=== PATIENT | male | born 1940 | race Caucasian/White ===

== ENCOUNTER 2017-06-23 08:21 | Outpatient (CLI) | payer MEDICARE, OTHER | END 2017-06-23 08:22 | disposition home or self-care (01) | LOC: BICMRI 08:21 | PROVIDERS: ATTEND Orthopaedic Surgery | DX: M48.061 Spinal stenosis, lumbar region without neurogenic claudication (principal); M99.83 Other biomechanical lesions of lumbar region; M47.27 Other spondylosis with radiculopathy, lumbosacral region | CPT/HCPCS: 72148 ==

== ENCOUNTER 2017-07-24 10:15 | Inpatient (IN) | payer MEDICARE, OTHER ==
[2017-07-31] MEDS ORDERED: CEFAZOLIN/Water 2 GM/20 ML SYRINGE ONE (10:59)
[2017-07-31] MEDS ORDERED: Bacitracin Zinc Ointment 30 gm TUBE ONE (12:25)
[2017-07-31] MEDS ORDERED: Sodium Chloride 0.9% 10 ML ONE (12:25)
[2017-07-31] MEDS ORDERED: Thrombin 5000 UNITS/5 ML VIAL ONE (12:25)
[2017-07-31] MEDS ORDERED: Fentanyl 100 MCG/2 ML VIAL ONE ×2 (12:53→16:22)
[2017-07-31] MEDS ORDERED: Rocuronium Bromide 50 MG/5 ML VIAL ONE (13:49)
[2017-07-31] MEDS ORDERED: Lidocaine 1% PF 5 ML VIAL ONE (13:51)
[2017-07-31] MEDS ORDERED: PROPOFOL 200 MG/20 ML VIAL ONE (13:51)
[2017-07-31] MEDS ORDERED: Ondansetron HCl/PF 4 MG/2 ML Vial ONE (13:51)
[2017-07-31] MEDS ORDERED: PHENYLEPHRINE-NS 100 MCG/ML 10 ML SYRINGE ONE ×2 (13:51→14:26)
[2017-07-31] MEDS ORDERED: ePHEDrine/0.9% NaCl/PF SYRINGE 50 mg/10 ml ONE ×2 (13:51→14:40)
[2017-07-31] MEDS ORDERED: Fleet Enema 133 ML BOT PR PRN (15:55)
[2017-07-31] MEDS ORDERED: traMADol HCl 50 MG TAB PO PRN (15:55)
[2017-07-31] MEDS ORDERED: Acetaminophen/Codeine 30-300mg Tablet PO PRN (15:55)
[2017-07-31] MEDS ORDERED: tiZANidine HCl 4 MG TAB PO PRN (15:55)
[2017-07-31] MEDS ORDERED: Milk Of Magnesia 30 ML UDCUP PO PRN (15:55)
[2017-07-31] MEDS ORDERED: Promethazine HCl 25 MG/ML VIAL IM PRN (15:55)
[2017-07-31] MEDS ORDERED: Mag-Al 1200 mg/1200 mg/30 ML UDCUP PO PRN (15:55)
[2017-07-31] MEDS ORDERED: Acetaminophen 325 MG TAB PO PRN (15:55)
[2017-07-31] MEDS ORDERED: Bisacodyl 10 MG SUPP PR PRN (15:55)
[2017-07-31] MEDS ORDERED: CEFAZOLIN/Water 2 GM/20 ML SYRINGE SLOW IVP SCH (19:00)
[2017-07-31] MEDS: Sodium Chloride 0.9% 1,000 ML IV SCH (21:49)
[2017-07-31] MEDS: Atorvastatin Calcium 20 MG TAB PO SCH (21:51)
[2017-07-31] MEDS: CEFAZOLIN/Water 2 GM/20 ML SYRINGE SLOW IVP SCH (21:51)
[2017-07-31 22:18] VITALS: BMI 30.1
[2017-07-31] MEDS: HYDROcodone/Acetaminophen 7.5/325 mg Tablet PO PRN (22:43)
[2017-08-01] MEDS: HYDROcodone/Acetaminophen 7.5/325 mg Tablet PO PRN ×4 (02:14→20:29)
[2017-08-01] MEDS: Sodium Chloride 0.9% 1,000 ML IV SCH ×2 (06:17→18:47)
[2017-08-01] MEDS: CEFAZOLIN/Water 2 GM/20 ML SYRINGE SLOW IVP SCH (06:17)
[2017-08-01] MEDS ORDERED: Tamsulosin HCl 0.4 MG CAP PO SCH (06:45)
[2017-08-01] MEDS: Lisinopril 10 MG TAB PO SCH (08:39)
[2017-08-01] MEDS: Cyanocobalamin (Vitamin B-12) 1,000 MCG TAB PO SCH (08:40)
[2017-08-01] MEDS ORDERED: Indapamide 1.25 MG TAB PO SCH (10:30)
[2017-08-01] MEDS: Atorvastatin Calcium 20 MG TAB PO SCH (20:29)
[2017-08-02] MEDS: HYDROcodone/Acetaminophen 7.5/325 mg Tablet PO PRN ×2 (03:45→08:32)
[2017-08-02] MEDS: Lisinopril 10 MG TAB PO SCH (08:28)
[2017-08-02] MEDS: Cyanocobalamin (Vitamin B-12) 1,000 MCG TAB PO SCH (08:28)
[2017-08-02] MEDS: Sodium Chloride 0.9% 1,000 ML IV SCH (08:30)
[2017-08-02] MEDS ORDERED: Tamsulosin HCl 0.4 MG CAP PO SCH (09:00)
[2017-08-02] MEDS ORDERED: Indapamide 1.25 MG TAB PO SCH (09:00)
--- NOTE | 2017-08-02 09:07 | PRG ---
DATE OF SERVICE: 08/02/2017 The patient is postop day #2 for L4-L5 synovial cyst resection. Yesterday, the patient developed artemio e urinary retention, requiring p.r.n. straight catheterization x2. With a bladder scan of greater th an 300 each time. Initially, patient reports he thought he was improving, but urinary retention retu rned yesterday evening, requiring placement of indwelling Chinchilla catheter. The patient is also gettin g 0.4 mg of Flomax every day. He is, otherwise, doing well. He reports he is walking to the apartme nt, 5/5 strength throughout. No focal motor weakness. His pain is well controlled with p.o. medicat ions and he is tolerating his diet. We will plan to consult Urology for evaluation of this development of urinary retention during his po stoperative course.
[2017-08-02 11:58] VITALS: BP 130/78; TEMP 98.8
--- NOTE | 2017-08-02 12:10 | CON ---
DATE OF CONSULTATION: 08/02/2017 HISTORY OF PRESENT ILLNESS: This is a 77-year-old white male, who 2 days ago underwent a L4-L5 synov ial cyst resection. This was done because of numbness in his right foot. It started about 2 years a go with sciatica-type pain and he still has that to some extent when he is up standing or walking for 30-40 minutes. He had the surgery done. He states that he initially voided okay when he came to [facility] floor, but since then has not been able to void more than just a very small amount. He was cathete rized twice and then yesterday evening a catheter was placed and left in. He has had a catheter once in the 1970s after cholecystectomy, and he does not recall that it was placed, because of difficulty with urination, but he thinks he just woke up from the procedure and had it in. He does have some l ower tract symptoms, which he has had for years. He is a patient of one of the Dr. Madrid's, but he h as not seen them for quite a while. He does get up 2-3 times at night. He has got no abnormal dayti me frequency. He does have some urgency, but no incontinence and no hesitancy. His force of stream has been diminished, but he does feel like he empties okay. He has not had any history of blood in t he urine. He has had no recent infections in the urinary tract, but he has had prostatitis probably a couple of times in the past. He has had no history of kidney stones. He has no family history of prostate cancer. He has no personal history suggestive of prostate cancer. Dr. Celaya, his family d domingo, does PSAs and he believes rectal exams yearly and they have been normal. His routine medicine s are medicine for cholesterol and hypertension. He does not take any medicines for lower urinary tr act symptoms. He also has taken aspirin. In the hospital, he is currently on Tylenol #3, hydrocodon e, p.r.n. morphine, Zanaflex, and Ultram. He has been started on Flomax, but he just probably had 1 dose of that, maybe 2. His routine medicines were Zestril, Lipitor, and aspirin as mentioned. He ames s not had a bowel movement since surgery, but has been passing gas. Since his surgery, he still has some numbness in the right foot, but he does not have any in the left. He has been walking and he do es not feel like he has any weakness in his lower extremities. He has no perineal paresthesias. PAST SURGICAL HISTORY: Includes a couple hernia repairs, a gallbladder procedure, and a back procedu re most recently. He has not had any orthopedic joint replacement or any cardiac valve replacement. ALLERGIES: He has no known drug allergies. SOCIAL HISTORY: He quit smoking a number of years ago. He does not drink much at all. FAMILY HISTORY: Positive for colon cancer, but not prostate cancer. PHYSICAL EXAMINATION: He does not have flank tenderness. The abdomen is soft and nontender. Bladde r is not distended. He is not circumcised, as the catheter indwelling appears to be in good position , draining clear urine. There is no phimosis. There are no penile lesions. The testicles are desce nded without mass or tenderness. There is no apparent needle paresthesias noted. There is normal se nsation to light touch. Rectal exam reveals normal rectal tone. He does have a voluntary anal contr action and a bulbocavernosus reflex that is present. His prostate is enlarged, but without nodularit y. There are no rectal lesions. IMPRESSION: This is a 77-year-old male with underlying lower urinary tract symptoms that have not re quired any therapy before surgery. He is now having difficulty urinating after and is probably relat ed to the pain medicines that he has been receiving as well as the bedrest and lack of his normal phy sical activity. I would recommend he go home on Flomax and Macrobid, leave the catheter in. I will see him in a few days in my office to give him a voiding trial. I think he has a very high probabili ty of returning to normal voiding, as most men that this occurs do. He does not appear to have anyth ing to suggest that he is developing an areflexic bladder from his surgery at least on his physical e xam, but I have asked the nurses to check with the Neurosurgery group to be sure they did not think t his could be an issue.
--- NOTE | 2017-08-03 11:14 | OP ---
DATE OF SURGERY: 07/31/2017 SURGEON: Quentin Pandey M.D. HEAD SCHOOL CUSTODIAN: Justin Ferro PA-C OR: 12. WOUND: Type 1 wound. PREPROCEDURE DIAGNOSES: Right L4 and L5 radiculopathy with far lateral disk extrusion and right L4-L 5 synovial cyst, resulting in L4, right L5 radiculopathy with low back and right leg pain. POSTPROCEDURE DIAGNOSES: Right L4 and L5 radiculopathy with far lateral disk extrusion and right L4- L5 synovial cyst, resulting in L4, right L5 radiculopathy with low back and right leg pain. PROCEDURES: 1. Right L4-L5 far lateral diskectomy with trans-facet approach. 2. Right L4-L5 synovial cyst resection. 3. Use of operative microscope for microdissection. DESCRIPTION OF PROCEDURE: After informed consent was obtained, the patient brought to OR 12. Proper patient pause and identification was carried out. He was placed in excellent general endotracheal a nesthesia, positioned prone on the OR table. All appropriate points were padded. We identified a mi dline linear hang to allow for approach to the right L4-L5 segment. This region was sterilely cleans ed, prepared, and draped. Proper patient pause and the identification was carried out. The wound wa s then opened with a combination of sharp, monopolar and blunt dissection, the right of midline L4-L5 segments exposed along with the facet complex. We then turned our attention to exposure of the righ t L4-L5 segment and the right L4-L5 hemilaminotomy, foraminotomy with a trans-facet approach was perf ormed resulting in a far lateral diskectomy in excellent decompression of the exiting L4 nerve root a nd then turned my attention to the resection of the right L4-L5 synovial cyst and this was done, resu lting in excellent decompression of the traversing right L5 nerve root, was very pleased with the dec ompression. There was no spinal fluid leak. Hemostasis was maximized throughout. The wound was copier and printer field technician iously irrigated and then closed in anatomic layers. The patient then emerged from anesthesia.
== END 2017-08-02 13:20 | disposition home or self-care (01) | DRG 520 ==
LOC: SURG A 07-31 10:35 → SURG B 07-31 18:06
PROVIDERS: ADMIT Surgery; ATTEND Surgery
PROC: 01NB0ZZ Release Lumbar Nerve, Open Approach (ICD-10-PCS; principal; 2017-07-31)
PROC: 0SB20ZZ Excision of Lumbar Vertebral Disc, Open Approach (ICD-10-PCS; 2017-07-31)
PROC: 0SB00ZZ Excision of Lumbar Vertebral Joint, Open Approach (ICD-10-PCS; 2017-07-31)
PROC: 0T9B70Z Drainage of Bladder with Drainage Device, Via Natural or Artificial Opening (ICD-10-PCS; 2017-08-01)
DX: M48.061 Spinal stenosis, lumbar region without neurogenic claudication (principal); M51.16 Intervertebral disc disorders with radiculopathy, lumbar region; M43.16 Spondylolisthesis, lumbar region; R33.8 Other retention of urine; M71.38 Other bursal cyst, other site; I10 Essential (primary) hypertension; E78.5 Hyperlipidemia, unspecified; R20.8 Other disturbances of skin sensation; T40.605A Adverse effect of unspecified narcotics, initial encounter; Y92.239 Unspecified place in hospital as the place of occurrence of the external cause; Z90.49 Acquired absence of other specified parts of digestive tract; Z87.891 Personal history of nicotine dependence; Z87.19 Personal history of other diseases of the digestive system; Z80.0 Family history of malignant neoplasm of digestive organs; Z79.899 Other long term (current) drug therapy; Z79.82 Long term (current) use of aspirin
CPT/HCPCS: 76001; 87086; A4216; J2001; J2405; J2704; J3010; J3370; J3490

== ENCOUNTER 2017-07-24 10:16 | Outpatient (CLI) | payer MEDICARE, OTHER ==
[2017-07-24 10:58] LABS: Hemoglobin 15.5 g/dL (14.0-18.0); Mean Corpuscular HGB CONC 34.4 g/dL (32.0-36.0); Mean Corpuscular Volume 89.9 fl (80.0-94.0); Mean Platelet Volume 8.2 fL (7.4-10.4); Platelet Count 164 thou/uL (130-400); RBC Distribution Width 12.4 % (11.5-14.5); Red Blood Cell (RBC) Count 5.01 mill/uL (4.70-6.10); White Blood Cell (WBC) Count 8.7 thou/uL (4.8-10.8)
[2017-07-24 11:07] LABS: INR-International Normal Ratio 1.1; PTT 28.8 SEC (22.9-36.1); Prothrombin Time 14.5 SEC (12.0-14.7)
[2017-07-24 11:20] LABS: Anion Gap 12 mmol/L (10-20); BUN (Urea Nitrogen) 17 mg/dL (8.4-25.7); Calc. Creatinine Clearance 0 mL/min (70-130); Calcium 10.5 mg/dL (7.8-10.44); Carbon Dioxide 25 mmol/L (23-31); Chloride 105 mmol/L (98-107); Estimated GFR-MDRD 57; Glucose 106 mg/dL (83-110); Potassium 3.5 mmol/L (3.5-5.1); Sodium 138 mmol/L (136-145)
== END 2017-07-24 10:17 | disposition home or self-care (01) ==
LOC: LABBT 10:16
PROVIDERS: ATTEND Surgery
DX: Z01.818 Encounter for other preprocedural examination (principal); M54.16 Radiculopathy, lumbar region; M48.061 Spinal stenosis, lumbar region without neurogenic claudication; M71.30 Other bursal cyst, unspecified site
CPT/HCPCS: 80048; 85027; 85610; 85730

== ENCOUNTER 2018-12-18 08:10 | Inpatient (IN) | payer MEDICARE, OTHER ==
--- NOTE | 2018-12-18 09:18 | RAD ---
RADIOGRAPH CHEST 1 VIEW: DATE: 12/18/2018 TIME: 8:50 AM HISTORY: 78-year-old male with fever, COMPARISON: none FINDINGS: Mildly elevated right hemidiaphragm. Transversely oriented region of increased attenuation along the right hemidiaphragm probably represents atelectasis at posterior base of right lower lobe. Pneumonia is less likely but not completely excluded. In the rest of the visualized lung mendoza, ther e is no consolidation or pulmonary edema. No pneumothorax. No cardiomegaly. Severe bony hypertrophy and severe joint space narrowing of the bilateral glenohumeral joints. IMPRESSION: 1) changes at the right lung base probably represent atelectasis. Recommend lateral view to rule out pneumonia. 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
[2018-12-18 09:36] LABS: ALT (SGPT) 41 U/L (8-55); AST (SGOT) 47 U/L (5-34); Albumin 2.8 g/dL (3.4-4.8); Alkaline Phosphatase 127 U/L (40-110); Anion Gap 14 mmol/L (10-20); BUN (Urea Nitrogen) 11 mg/dL (8.4-25.7); Bilirubin, Total 3.6 mg/dL (0.2-1.2); Calc. Creatinine Clearance 0 mL/min (70-130); Calcium 9.3 mg/dL (7.8-10.44); Carbon Dioxide 22 mmol/L (23-31); Chloride 103 mmol/L (98-107); Estimated GFR-MDRD 72; Glucose 146 mg/dL (83-110); Potassium 3.4 mmol/L (3.5-5.1); Protein, Total 5.8 g/dL (5.8-8.1); Sodium 136 mmol/L (136-145)
[2018-12-18 09:55] LABS: #Lymphocytes 0.6 thou/uL (1.20-3.40); #Monocytes 0.8 thou/uL (0.11-0.59); #Neutrophils 9.2 thou/uL (1.40-6.50); %Basophils 0.2 % (0.0-1.0); %Eosinophils 0.2 % (0.0-10.0); %Lymphocytes 5.5 % (21.0-51.0); %Monocytes 7.6 % (0.0-10.0); %Neutrophils 86.5 % (42.0-75.0); Hemoglobin 12.5 g/dL (14.0-18.0); Large Platelets SLIGHT; MDiff Complete? YES; Mean Corpuscular HGB CONC 33.6 g/dL (32.0-36.0); Mean Corpuscular Volume 92.1 fL (78.0-98.0); Mean Platelet Volume 9.5 fL (7.4-10.4); Platelet Count 92 thou/uL (130-400); Platelet Morphology Comment Appears Decreased; RBC Morphology Normal; Red Blood Cell (RBC) Count 4.04 mill/uL (4.70-6.10); White Blood Cell (WBC) Count 10.7 thou/uL (4.8-10.8)
--- NOTE | 2018-12-18 10:49 | CT ---
CT ANGIOGRAM THORAX WITH CONTRAST: (CTA pulmonary angiogram) DATE: 12/18/2018 HISTORY: 78-year-old male with pancreatic cancer presents with dyspnea and fever. TECHNIQUE: IV injection of iodinated contrast. Scan acquisition timing attempted to coincide with iodinated contrast bolus reaching maximal density in pulmonary arteries. 3-D MIP reconstructions. FINDINGS: Small right pleural effusion with adjacent small airspace density in the posterior aspect of right lo wer lobe, favored to be atelectasis, and less likely to represent pneumonia. However, there is a very large number of tiny calcific densities distributed throughout this airspace density. No consoli dation or pulmonary edema in the rest of the visualized lung mendoza. No pneumothorax. Trachea and bilateral mainstem bronchi are patent and clear. No left pleural effusion. No cardiomegaly or pericar dial effusion. No thoracic aortic aneurysm or dissection. There are small filling defects in pulmonary artery lumen consistent with thromboemboli, including an terior segment left upper lobe pulmonary artery and one of its proximal branches, and a proximal branch of left lower lobe pulmonary artery no filling defects in pulmonary trunk or left and right ma in pulmonary arteries. No signs of right ventricular strain. No mediastinal or hilar lymphadenopathy. Moderate to large amount of free fluid around the liver and spleen. No splenomegaly. Stents within th e common hepatic duct and common bile duct. Gas throughout multiple intrahepatic biliary radicles. Abnormal appearance of pancreatic head and body, incompletely visualized, probably representing pancr eatic cancer mentioned in history. Some of the intraperitoneal free fluid extends superior to the diaphragm into the lower posterior mediastinum around the distal esophagus. No moderate sized or larg e hiatal hernia. Elevated right hemidiaphragm. IMPRESSION: 1) positive for mild pulmonary thromboembolism involving a few pulmonary artery branches on the left. Small clot burden. 2) small right pleural effusion and adjacent right lower lobe mild airspace density. 3) a large number of tiny calcific densities throughout the right lower lobe airspace density, of unc ertain etiology. One possibility is aspiration of barium from prior radiological study or aspiration of other type of high density liquid material. 4) ascites. 5) pneumobilia, presumably related to the biliary stents.
[2018-12-18] MEDS ORDERED: Piperacillin/Tazobactam 4.5 GM VIAL ONE (11:23)
[2018-12-18] MEDS ORDERED: Sodium Chloride 0.9% 100 ML ONE (11:24)
[2018-12-18 12:13] LABS: Bacteria/HPF None Seen HPF (None Seen); Bilirubin Negative (Negative); Blood, Urine Negative (Negative); Clarity Turbid (Clear); Glucose, Urine (Dipstick) Normal (Negative); Leukocyte Negative Leu/uL (Negative); Mucous/LPF Rare LPF (<2+); Nitrite Negative (Negative); Protein, Urine (Dipstick) 50 mg/dL (Neg-Trace); Squamous Epithelial 0-3 HPF (0-3); Urobilinogen 3 mg/dL (Less than 2)
[2018-12-18 12:27] LABS: Calcium Oxalate Crystals 3+ HPF (None Seen); RBC/HPF 0-3 HPF (0-3); WBC/HPF 0-3 HPF (0-3)
[2018-12-18] MEDS ORDERED: ISOVUE-370 76%-LOCM 1 ML ONE (12:35)
[2018-12-18 13:05] LABS: CKMB 0.6 ng/mL (0-6.6)
[2018-12-18] MEDS ORDERED: Vancomycin HCl 1.5 GM in Sodium Chloride 0.9% 250 ML 300 ML IVPB SCH (13:45)
[2018-12-18] MEDS ORDERED: Enoxaparin Sodium 80 MG/0.8 ML SYRINGE ONE (14:44)
[2018-12-18] MEDS ORDERED: Enoxaparin Sodium 30 MG/0.3 ML SYRINGE ONE (14:44)
[2018-12-18 14:58] LABS: Troponin I 0.027 ng/mL (< 0.028)
[2018-12-18] MEDS ORDERED: Acetaminophen 325 MG TAB PO PRN (15:08)
[2018-12-18] MEDS ORDERED: diphenhydrAMINE 25 MG CAP PO PRN (15:12)
[2018-12-18] MEDS: Ondansetron PF 4 MG/2 ML Vial IVP PRN (15:51)
[2018-12-18 16:26] VITALS: BMI 31.5
[2018-12-18 18:22] LABS: Troponin I 0.018 ng/mL (< 0.028)
[2018-12-18] MEDS: Piperacillin/Tazobactam 3.375 GM in Sodium Chloride 0.9% 100 ML IVPB SCH ×2 (18:34→23:45)
[2018-12-18] MEDS: metroNIDAZOLE 500 MG TAB PO SCH (20:30)
[2018-12-18] MEDS ORDERED: Tamsulosin HCl 0.4 MG CAP PO SCH (21:00)
--- NOTE | 2018-12-18 22:22 | HP ---
HISTORY OF PRESENT ILLNESS: This is a 78-year-old male presenting to the emergency department. The patient is known to me from his prior admission in September. At that time, the patient presented with painless jaundice and had followed up with his PCP, Dr. Celaya. With elevated liver enzymes and bilirubin, CT confirmed what appeared to be a pancreatic head mass. The patient was subsequently transferred to [place], where he underwent endoscopic ultrasound and biopsy confirming a pancreatic cancer. The patient has subsequently been following with [facility] at their [place] office location. He has been receiving gemcitabine for therapy. He also had several stents placed within the pancreatic duct and biliary tree. He has also had to have several paracenteses as well for ascites. Today, the patient presented to the hospital with fever. He has had some generalized nausea, fatigue and a couple of days ago had some episodes of diarrhea. Other than that, he has no specific symptoms to suggest a particular source of infection. He does report some shortness of breath, which is generally more chronic. The patient has recently been diagnosed with a DVT behind the right knee area and has been on Lovenox injections for that. REVIEW OF SYSTEMS: Notable for the above mentioned fevers, chills, nausea, fatigue, generalized weakness, slight headache today, has had some persistent leg edema. All other systems reviewed. All pertinent positives and negatives noted in the history of present illness. PAST MEDICAL HISTORY: As noted above, pancreatic cancer. He also has a history of hypertension, DVT in the right lower extremity. Currently not on medication. PAST SURGICAL HISTORY: He has had back surgery, cholecystectomy, hernia repair, had the ductal stents placed in the pancreas and biliary tree and paracentesis x4. FAMILY HISTORY: Mother had a myocardial infarction. SOCIAL HISTORY: The patient is a former smoker. Smoked for 40 years, quit 40 years ago. Occasional mild alcohol consumption. He is . He is full code, but was clear he did not want long-term life support situations. ALLERGIES: NONE. MEDICATIONS: 1. Zofran 4 mg q.6 p.r.n. 2. Flomax 0.4 mg p.o. daily. 3. Benadryl p.r.n. 4. Docusate p.r.n. 5. Enoxaparin. 6. Gemcitabine for chemotherapy. PHYSICAL EXAMINATION: VITAL SIGNS: Pulse 89, BP 114/70, respirations 20, O2 saturation 99.2 with a T-max in the ER of 101.2, O2 saturation 97% on room air. GENERAL APPEARANCE: Age-appropriate male. He is in no distress, although he does appear to have some evident chills. He is awake and alert, pleasant, and cooperative. His jaundice has substantially improved since his last visit here in September. HEENT: PERRL. No OP lesions. NECK: Supple and symmetric. No lymphadenopathy, JVD, or bruits. HEART: Regular rate and rhythm without murmurs, gallops, or rubs. LUNGS: Clear to auscultation bilaterally with good chest wall expansion and air exchange. No wheezes or rales. ABDOMEN: Soft, nontender, and nondistended. Positive bowel sounds. No palpable masses. EXTREMITIES: Have 2+ pitting edema to the level of the knee with no cyanosis or clubbing. PSYCHIATRIC: Normal affect and behavior. NEUROLOGIC: The patient appears to have normal cranial nerve function grossly. Has spontaneous movement of all extremities with no focal deficits noted. LABORATORY DATA: White count 10.7, hemoglobin 12.5, platelets 92. Sodium 136, potassium 3.4, chloride 103, CO2 22, BUN 11, creatinine is 1.01, glucose 146, lactic acid 1.7, total bilirubin is 3.6, AST 47, ALT 41, alkaline phosphatase 127. CK-MB is 0.6, troponin 0.049 with subsequent 0.027. BNP 47. Albumin 2.8. Lipase is less than 4. Urinalysis turbid. Specific gravity is 1.043, 3+ calcium oxalate crystals, nasopharyngeal viral screen negative for flu A and B. Chest x-ray, changes with right lung base likely representing some atelectasis. Severe shoulder osteoarthritis of both glenohumeral joints. CTA of the chest is positive for mild pulmonary thromboembolism involving a few pulmonary artery branches on the left with very small clot burden. Small right pleural effusion adjacent to right lower lobe. Mild airspace density. Large number of tiny calcific densities throughout the right lower lobe airspace density of uncertain etiology, possibly aspiration of barium. (The patient denies having had any studies involving any oral contrast) or aspiration of other high-density liquid material. Ascites. Pneumobilia, presumably related to the biliary stents. IMPRESSION AND PLAN: 1. Febrile illness in a patient undergoing chemotherapy for pancreatic cancer. The only likely source at this point seems to be possible early pneumonia. The patient is not neutropenic. He is being covered with vancomycin and Zosyn. We will continue to follow cultures and monitor for any signs of new acute infections. 2. Pulmonary emboli secondary to right lower extremity deep vein thrombosis. The patient has been on Lovenox injections since the diagnosis of the deep vein thrombosis. We will continue with those at therapeutic dose of 1 mg/kg b.i.d. 3. Pancreatic cancer, being followed at [facility]. He had obstructive disease and has had several stents placed. His bilirubin has come down dramatically and that appears to be generally stable at this time. 4. Diarrheal illness. The patient had some diarrhea a couple of days ago, seems to be fully resolved. Should he have any recurrence of liquid stools, would order studies for infectious etiology of the diarrhea at that time. 5. History of benign prostatic hypertrophy. Continue tamsulosin. Job ID: [id number]
[2018-12-19 05:36] LABS: #Eosinphils 0.2 thou/uL (0.0-0.7); #Lymphocytes 1.2 thou/uL (1.20-3.40); #Monocytes 0.8 thou/uL (0.11-0.59); #Neutrophils 4.1 thou/uL (1.40-6.50); %Basophils 0.2 % (0.0-1.0); %Eosinophils 3.2 % (0.0-10.0); %Lymphocytes 19.4 % (21.0-51.0); %Monocytes 12.2 % (0.0-10.0); %Neutrophils 65.1 % (42.0-75.0); Hemoglobin 10.3 g/dL (14.0-18.0); Mean Corpuscular HGB CONC 32.7 g/dL (32.0-36.0); Mean Corpuscular Hemoglobin 30.1 pg (27.0-31.0); Mean Corpuscular Volume 92.3 fL (78.0-98.0); Mean Platelet Volume 9.3 fL (7.4-10.4); Platelet Count 83 thou/uL (130-400); RBC Distribution Width 13.9 % (11.5-14.5); Red Blood Cell (RBC) Count 3.41 mill/uL (4.70-6.10); White Blood Cell (WBC) Count 6.3 thou/uL (4.8-10.8)
[2018-12-19 05:51] LABS: ALT (SGPT) 30 U/L (8-55); AST (SGOT) 35 U/L (5-34); Albumin 2.2 g/dL (3.4-4.8); Alkaline Phosphatase 99 U/L (40-110); Anion Gap 10 mmol/L (10-20); BUN (Urea Nitrogen) 12 mg/dL (8.4-25.7); Bilirubin, Total 2.7 mg/dL (0.2-1.2); Calc. Creatinine Clearance 108 mL/min (70-130); Calcium 8.5 mg/dL (7.8-10.44); Carbon Dioxide 22 mmol/L (23-31); Chloride 105 mmol/L (98-107); Estimated GFR-MDRD 80; Globulin 2.6 g/dL (2.4-3.5); Glucose 122 mg/dL (83-110); Potassium 3.4 mmol/L (3.5-5.1); Protein, Total 4.8 g/dL (5.8-8.1); Sodium 134 mmol/L (136-145)
[2018-12-19] MEDS: Piperacillin/Tazobactam 3.375 GM in Sodium Chloride 0.9% 100 ML IVPB SCH ×4 (06:03→23:36)
[2018-12-19] MEDS: Cefepime 1 GM in Sodium Chloride 0.9% 100 ML IVPB SCH ×2 (09:32→21:27)
[2018-12-19] MEDS: Enoxaparin Sodium 100 MG/ML SYRINGE SC SCH ×2 (09:41→21:27)
[2018-12-19] MEDS: metroNIDAZOLE 500 MG TAB PO SCH ×3 (09:41→21:29)
[2018-12-19] MEDS ORDERED: Tamsulosin HCl 0.4 MG CAP PO SCH (10:00)
[2018-12-19] MEDS ORDERED: Loperamide HCl 2 MG CAP PO SCH (14:45)
[2018-12-19] MEDS: Pancrelipase DR 12000 1 CAP PO SCH (18:05)
--- NOTE | 2018-12-19 21:24 | PDOC.HOSPP ---
- Subjective Subjective: Feels better in general. Still having some diarrhea. Has loud borborigmi. - Objective Vital Signs & Weight: Vital Signs (12 hours) Temp Pulse Resp BP Pulse Ox 12/19/18 16:25 98.2 F 71 12 107/60 96 12/19/18 12:30 97.8 F 66 14 107/61 97 12/19/18 09:30 96 Weight Weight 248 lb 9.6 oz I&O: 12/18/18 12/19/18 12/20/18 06:59 06:59 06:59 Intake Total 761 720 Output Total 275 Balance 486 720 Result Diagrams: 12/19/18 05:24 12/19/18 05:24 Hospitalist ROS - Medication Medications: Active Medications Generic Name Dose Route Start Last Admin Trade Name Freq PRN Reason Stop Dose Admin Lipase/Protease/Amylase 1 cap 12/19/18 17:00 12/19/18 18:[address] [address] PO 1 cap TID-WM UBALDO Administration Enoxaparin Sodium 100 mg 12/19/18 09:00 12/19/18 09:41 Lovenox SC 100 mg 0900,2100 UBALDO Administration Piperacillin Sod/Tazobactam 100 mls @ 200 mls/hr 12/18/18 18:00 12/19/18 18: 05 Sod 3.375 gm/ Sodium Chloride IVPB 100 mls Q6HR UBALDO Administration Cefepime HCl 1 gm/ Sodium 100 mls @ 200 mls/hr 12/19/18 09:00 12/19/18 09:32 Chloride IVPB 100 mls Q12HR UBALDO Administration Metronidazole 500 mg 12/18/18 21:00 12/19/18 16:28 Flagyl PO 500 mg TID UBALDO Administration Ondansetron HCl 4 mg 12/18/18 15:12 12/18/18 15:51 Zofran IVP 4 mg Q6H PRN Administration Nausea/Vomiting - Exam General Appearance: NAD (M), awake alert General - other findings: mild jaundice Heart: RRR, no murmur, no gallops, no rubs, normal peripheral pulses Respiratory: CTAB, no wheezes, no rales, no ronchi, normal chest expansion, no tachypnea, normal percussion Gastrointestinal: soft, non-tender, non-distended, normal bowel sounds, no palpable masses, no hepatomegaly, no splenomegaly, no bruit Gastrointestinal - other findings: Bowel sounds are a little hyperactive. Musculoskeletal: normal tone Psychiatric: normal affect, normal behavior, A&O x 3 Hosp A/P (1) Pancreatic cancer Status: Acute (2) Bacteremia due to Klebsiella pneumoniae Code(s): R78.81 - BACTEREMIA Status: Acute (3) Diarrhea Code(s): R19.7 - DIARRHEA, UNSPECIFIED Status: Acute (4) Exocrine pancreatic insufficiency Code(s): K86.81 - EXOCRINE PANCREATIC INSUFFICIENCY Status: Acute (5) Pulmonary emboli Code(s): I26.99 - OTHER PULMONARY EMBOLISM WITHOUT ACUTE COR PULMONALE Status : Acute (6) DVT (deep venous thrombosis) Code(s): I82.409 - ACUTE EMBOLISM AND THOMBOS UNSP DEEP VN UNSP LOWER EXTREMITY Status: Acute - Plan Improved. Now has the Klebsiell bacteremia. Source not fully known. Has defervesced. Continue Vanc/Zosyn. Added Cefepime. Consult ID. C diff was negative. Suspect he has pancreatic insufficiency due to the cancer and obstruction. Add pancrease. Continue anticoagulation with lovenox.
[2018-12-19] MEDS: Loperamide HCl 2 MG CAP PO PRN (22:28)
[2018-12-20 04:57] LABS: #Eosinphils 0.2 thou/uL (0.0-0.7); #Lymphocytes 0.8 thou/uL (1.20-3.40); #Monocytes 0.5 thou/uL (0.11-0.59); #Neutrophils 2.3 thou/uL (1.40-6.50); %Basophils 0.1 % (0.0-1.0); %Eosinophils 4.8 % (0.0-10.0); %Lymphocytes 20.7 % (21.0-51.0); %Monocytes 12.6 % (0.0-10.0); %Neutrophils 61.9 % (42.0-75.0); Hemoglobin 10.4 g/dL (14.0-18.0); Mean Corpuscular HGB CONC 33.4 g/dL (32.0-36.0); Mean Corpuscular Hemoglobin 30.9 pg (27.0-31.0); Mean Corpuscular Volume 92.5 fL (78.0-98.0); Mean Platelet Volume 8.7 fL (7.4-10.4); Platelet Count 122 thou/uL (130-400); RBC Distribution Width 13.7 % (11.5-14.5); Red Blood Cell (RBC) Count 3.37 mill/uL (4.70-6.10); White Blood Cell (WBC) Count 3.7 thou/uL (4.8-10.8)
[2018-12-20 05:14] LABS: Anion Gap 10 mmol/L (10-20); BUN (Urea Nitrogen) 11 mg/dL (8.4-25.7); Calc. Creatinine Clearance 121 mL/min (70-130); Calcium 8.5 mg/dL (7.8-10.44); Carbon Dioxide 25 mmol/L (23-31); Chloride 103 mmol/L (98-107); Estimated GFR-MDRD 90; Glucose 113 mg/dL (83-110); Sodium 135 mmol/L (136-145)
[2018-12-20 05:17] LABS: Potassium 2.8 mmol/L (3.5-5.1)
[2018-12-20] MEDS ORDERED: Potassium Chloride 20 MEQ TAB PO SCH (05:30)
[2018-12-20] MEDS: Piperacillin/Tazobactam 3.375 GM in Sodium Chloride 0.9% 100 ML IVPB SCH ×3 (05:50→17:14)
[2018-12-20] MEDS: Potassium Chloride 10 MEQ in Premix Bag 1 BAG IVPB SCH ×2 (06:11→08:09)
[2018-12-20] MEDS: Ondansetron PF 4 MG/2 ML Vial IVP PRN (08:14)
[2018-12-20] MEDS: Cefepime 1 GM in Sodium Chloride 0.9% 100 ML IVPB SCH ×2 (09:21→22:11)
[2018-12-20] MEDS: Enoxaparin Sodium 100 MG/ML SYRINGE SC SCH ×2 (09:24→22:11)
[2018-12-20] MEDS: Tamsulosin HCl 0.4 MG CAP PO SCH (09:24)
[2018-12-20] MEDS: Pancrelipase DR 12000 1 CAP PO SCH ×3 (09:25→17:17)
[2018-12-20] MEDS ORDERED: ISOVUE-370 76%-LOCM 1 ML ONE (10:26)
[2018-12-20 10:43] LABS: Potassium 3.9 mmol/L (3.5-5.1)
[2018-12-20] MEDS: Loperamide HCl 2 MG CAP PO PRN (11:18)
--- NOTE | 2018-12-20 16:10 | PDOC.HOSPP ---
- Subjective Subjective: Feels ok except that he continues to have some frequent BM's and slight distention, bloat. He does report and oily film in the toilet. - Objective Vital Signs & Weight: Vital Signs (12 hours) Temp Pulse Resp BP Pulse Ox 12/20/18 16:00 98.2 F 77 17 117/66 95 12/20/18 11:56 97.9 F 83 16 103/55 L 95 12/20/18 08:21 94 L 12/20/18 07:59 98.1 F 67 16 109/95 H 94 L Weight Weight 248 lb 9.6 oz I&O: 12/19/18 12/20/18 12/21/18 06:59 06:59 06:59 Intake Total 761 1410 Output Total 275 Balance 486 1410 Result Diagrams: 12/20/18 04:22 12/20/18 10:20 Hospitalist ROS - Medication Medications: Active Medications Generic Name Dose Route Start Last Admin Trade Name Freq PRN Reason Stop Dose Admin Lipase/Protease/Amylase 1 cap 12/19/18 17:00 12/20/18 11:[address] [place] [address] PO 1 cap TID-WM UBALDO Administration Enoxaparin Sodium 100 mg 12/19/18 09:00 12/20/18 09:24 Lovenox SC 100 mg 0900,2100 UBALDO Administration Piperacillin Sod/Tazobactam 100 mls @ 200 mls/hr 12/18/18 18:00 12/20/18 11: 18 Sod 3.375 gm/ Sodium Chloride IVPB 100 mls Q6HR UBALDO Administration Cefepime HCl 1 gm/ Sodium 100 mls @ 200 mls/hr 12/19/18 09:00 12/20/18 09:21 Chloride IVPB 100 mls Q12HR UBALDO Administration Loperamide HCl 2 mg 12/19/18 22:22 12/20/18 11:18 Imodium PO 2 mg BID PRN Administration Diarrhea/Loose Stools Ondansetron HCl 4 mg 12/18/18 15:12 12/20/18 08:14 Zofran IVP 4 mg Q6H PRN Administration Nausea/Vomiting Tamsulosin HCl 0.4 mg 12/20/18 09:00 12/20/18 09:24 Flomax PO 0.4 mg QAM UBALDO Administration - Exam General Appearance: NAD, awake alert General - other findings: Mild jaundice. Neck: supple, symmetric, no JVD, no thyromegaly, no lymphadenopathy, no carotid bruit Heart: RRR, no murmur, no gallops, no rubs, normal peripheral pulses Respiratory: CTAB, no wheezes, no rales, no ronchi, normal chest expansion, no tachypnea, normal percussion Gastrointestinal: soft Gastrointestinal - other findings: Slight distention. Hyperactive bowel sounds. Extremities: no cyanosis, no clubbing, no edema Skin: normal turgor Musculoskeletal: generalized weakness Psychiatric: normal affect, normal behavior, A&O x 3 Hosp A/P (1) Pancreatic cancer Status: Acute (2) Bacteremia due to Klebsiella pneumoniae Code(s): R78.81 - BACTEREMIA Status: Acute (3) Diarrhea Code(s): R19.7 - DIARRHEA, UNSPECIFIED Status: Acute (4) Exocrine pancreatic insufficiency Code(s): K86.81 - EXOCRINE PANCREATIC INSUFFICIENCY Status: Acute (5) Pulmonary emboli Code(s): I26.99 - OTHER PULMONARY EMBOLISM WITHOUT ACUTE COR PULMONALE Status : Acute (6) DVT (deep venous thrombosis) Code(s): I82.409 - ACUTE EMBOLISM AND THOMBOS UNSP DEEP VN UNSP LOWER EXTREMITY Status: Acute - Plan Improved. Now has the Klebsiell bacteremia. Source not fully known. Has defervesced. Continue Vanc/Zosyn. Added Cefepime. Consult ID. C diff was negative. Suspect he has pancreatic insufficiency due to the cancer and obstruction. Added pancrease with little change so far. Will add actigall as well. Continue anticoagulation with lovenox.
[2018-12-20] MEDS: Ursodiol 300 MG CAP PO SCH (17:17)
--- NOTE | 2018-12-20 22:03 | CT ---
CT ABDOMEN AND PELVIS WITH IV CONTRAST 12/20/2018 CLINICAL INFORMATION: Pancreatic cancer, biliary stent, bacteremia. COMPARISON: CT abdomen and pelvis on 10/25/2018 and CTA thorax on 12/18/2018 Technique: Multiple contiguous axial CT images are obtained through the abdomen and pelvis with IV contrast. Cor onal reformatted images are provided. FINDINGS: Lower Chest: A small right pleural effusion and associated consolidation right lung base is again not ed. Consolidation is probably related to volume loss. However, there are multiple increased density foci seen within the small area of consolidation overall similar to the prior exam but of uncertain e tiology. Vessels: Vascular calcifications are seen in the abdominal aorta and involving the iliac arteries. Abdomen: Portal vein:Not well opacified on this exam, but there is suggestion of a filling defect within the r egion of the portal confluence and a portion of the superior mesenteric vein at the level of the pancreatic head which may represent either bland thrombus or tumor thrombus. There is partial opacifi cation involving the right portal vein. Left portal vein is very small and not well assessed. Portion of the splenic vein the level of the pancreatic head mass is occluded. Gallbladder: Surgically absent. Liver: Previously noted intrahepatic biliary ductal dilatation has significantly improved. There is e vidence of pneumobilia with mild prominence of the intrahepatic bile ducts in the left hepatic lobe. A common duct stent is noted in place also seen on prior CT exam of the thorax. Spleen: within normal limits. Pancreas: Previously noted mass involving the pancreatic head and portion of the body of the pancreas is again seen. There is mild dilatation of the pancreatic duct in the tail of the pancreas. This is similar to the prior exam. This mass does encase the splenic artery and common hepatic artery and occludes the splenic vein in the region of the mass. Adrenals: within normal limits. Kidneys: Right renal cysts are again seen with mild cortical scarring involving each kidney. Bowel: Again noted is colonic diverticulosis. Loops of small bowel are normal in caliber. Portions of the ascending colon and in the region of the hepatic flexure appear mildly thickened, but this is probably attributable to incomplete distention as opposed to colitis. Appendix: Not visualized. Peritoneum: A small to moderate amount of intraperitoneal free fluid is again seen which has increase d when compared to prior CT abdomen but was partially visualized on views of the upper abdomen on CTA of the thorax on 12/18/2018. No defined fluid collection is visualized. Mesentery and Retroperitoneum: No enlarged mesenteric or retroperitoneal lymph nodes. Abdominal Wall: Mild subcutaneous edema is seen in the flank regions bilaterally as well as in the gl uteal soft tissues. Pelvis: Reproductive Organs: There is heterogeneity of the prostate gland. Pelvis within normal limits. Bladder: Increased density material is seen within the urinary bladder likely due to prior contrasted study. Bones: Multilevel degenerative changes are again seen throughout the spine. No suspicious lytic or sc lerotic osseous lesions are identified. IMPRESSION: 1. Pancreatic head mass also seen on prior exam which involves a portion of the body of the pancreas and encases vascular structures resulting in occlusion of the splenic vein, and there is thrombus within a portion of the superior mesenteric vein and at the portal confluence which may represent eit her bland thrombus or tumor thrombus. 2. Common duct stent remains in place with pneumobilia within the liver. Cholecystectomy changes are present. 3. Small right pleural effusion with persistent small area of consolidation right lung base which may be attributable to volume loss. Increased density material within the air consolidation is also again seen of uncertain etiology. 4. Small to moderate amount of ascites. 5. Increased density within the urinary bladder which may be related to prior contrasted study. There is also mild heterogeneity involving the prostate gland similar to prior exam. 6. Additional findings as described above.
--- NOTE | 2018-12-20 23:18 | CON ---
DATE OF CONSULTATION: 12/20/2018 REASON FOR CONSULTATION: Bacteremia. HISTORY OF PRESENT ILLNESS: This is a 78-year-old patient history of hypertension and recently diagnosed pancreatic cancer with biliary tract obstruction, which was managed initially in [facility] and a stent was attempted, it was not successful. He was referred to [facility] and a successful stent was placed. He is receiving chemotherapy, I believe at [facility]. He has received 1 course thus far and he was then sent home and he developed fever and was admitted. He has had some diarrhea, no headaches, no visual symptoms, sore throat, odynophagia, dysphagia, no cough or sputum production, no chest pain, no genitourinary symptoms. No joint symptoms, no neurological symptoms. PAST MEDICAL HISTORY: Hypertension, pancreatic cancer, recently diagnosed, managed with stents to the biliary tree and currently on chemotherapy. Has a previous back surgery by Dr. Pandey with mostly laminectomy, diskectomy. ALLERGIES: NONE. FAMILY HISTORY: Noncontributory. CURRENT MEDICATIONS: 1. Tylenol. 2. Creon. 3. Cefepime. 4. Benadryl. 5. Lovenox. 6. Imodium. 7. Zofran. 8. Zosyn. 9. Ursodiol. PHYSICAL EXAMINATION: VITAL SIGNS: Normal temperature, blood pressure 117/66, pulse 77, respirations 17, O2 saturation 95 on room air. SKIN: Peripheral IV access, he is voiding in the urinal. LYMPH: No lymphadenopathy. HEENT: Ocular movements conjugate. Sclerae white. Pupils are equal. Oral cavity normal. NECK: Supple. LUNGS: Symmetric, clear breath sounds, S1, S2 regular rate. No S3 or S4. ABDOMEN: Soft, not distended, [id number] distended with positive fluid wave suggestive of ascites. No bladder distention. GENITOURINARY: No genital abnormalities. MUSCULOSKELETAL: No joint inflammatory activity. 1+ edema in lower extremities. Pulses 1+ in dorsalis pedis. Moves extremities equally. LABORATORY DATA: White cell count is 10.7 down to 3.7, hemoglobin was 12.5 and 10.4 now, platelets are 92 and 122. Differential with 86% neutrophils and now 61%. Sodium 136, creatinine 1.01. Bilirubin was 3.6 on arrival. It peaked in October at 27.2 and now is down to 2.7. AST was 74 in September and now is down to 35 and ALT is at 30 now, alkaline phosphatase was 345 at the beginning of October, now is down to 99. Urinalysis with 0-3 wbcs, microbiology with one set of blood cultures with Klebsiella pneumoniae. The patient had C. diff in stool, antigen and toxin negative. Campylobacter and Shiga toxin assay negative, stool lactoferrin was negative as well. The patient had a CT of the chest, which showed small calcific densities throughout the right lower lobe airspace. There is mild pulmonary embolism and a few pulmonary artery branches on the left side with a small clot burden. Pneumobilia, presumably related to biliary stents, probably. The last abdomen and pelvis from October 25 and it showed a mass head of the pancreas, dilatation of pancreatic duct and dilatation of intrahepatic and extrahepatic biliary system. ASSESSMENT: Pancreatic cancer with obstructing biliary system status post stenting at [facility] and started on gemcitabine chemotherapy there, now with fever and Klebsiella pneumoniae bacteremia. DISCUSSION: The differential diagnosis includes biliary tract involvement with ascending cholangitis. Infection following stent placement can sometimes be associated with occlusion of the lumen of the stent by debris, fragments or blood clots and migration of the stent among other complications. I do not know what type of stent he has, if it is a metal or plastic stent. In this case, it is obvious that if there was a stent occlusion, this was a transient and corrected itself with resolution of the presumed obstruction. So, it looks like he is going to be able to be managed conservatively at this point with antimicrobial therapy with quinolone given orally for discharge planning. Other sites that could be associated with this bacteremia are not apparent at this time such as respiratory tract or other intraabdominal sites, urinary tract, bone and joint. None of them appear to be involved by an inflammatory process at this point. He may be at risk for recurrence of this phenomenon and then may have to consider replacement of the stent. The duration of quinolones should probably be around 2 weeks approximately. Job ID: [id number]
[2018-12-21] MEDS: Piperacillin/Tazobactam 3.375 GM in Sodium Chloride 0.9% 100 ML IVPB SCH ×3 (00:36→12:57)
[2018-12-21] MEDS: Loperamide HCl 2 MG CAP PO PRN (05:52)
[2018-12-21] MEDS: Pancrelipase DR 12000 1 CAP PO SCH ×2 (09:50→12:56)
[2018-12-21] MEDS: Enoxaparin Sodium 100 MG/ML SYRINGE SC SCH (09:50)
[2018-12-21] MEDS: Tamsulosin HCl 0.4 MG CAP PO SCH (09:50)
[2018-12-21] MEDS: Cefepime 1 GM in Sodium Chloride 0.9% 100 ML IVPB SCH (09:51)
[2018-12-21] MEDS: Ursodiol 300 MG CAP PO SCH ×2 (10:22→12:56)
[2018-12-21 13:00] VITALS: BP 115/68; TEMP 96.8
--- NOTE | 2018-12-21 13:58 | PQF ---
STEVIE ALVARES DAVID R MD [id number] [id number] CLINICAL DOCUMENTATION IMPROVEMENT CLARIFICATION FORM: ICD-10 Updated PLEASE DO AN ADDENDUM TO THE PROGRESS NOTE WITH ANY DOCUMENTATION UPDATES OR ADDITIONS AND CARRY THROUGH TO DC SUMMARY. THANK YOU. DATE: 12/21/18 ATTN:DR. Jameson OLMOS Please exercise your independent, professional judgment in responding to the clarification form. Clinical indicators are provided on the bottom of this form for your review. Please check appropriate box(s): [ ] Acute Respiratory Failure: [ ] with Hypoxia[ ] with Hypercapnia [ ] Acute On Chronic Respiratory Failure: [ ] with Hypoxia [ ] with Hypercapnia [ ] Acute Respiratory Failure due to: (etiology) [ ] Chronic Respiratory Failure only [ ] with Hypoxia [ ] with Hypercapnia [ x ] Other diagnosis Bactermia [ ] Unable to determine In addition, please specify: Present on Admission (POA): [ ] Yes [ ] No [ ] Unable to determine For continuity of documentation, please document condition throughout progress notes and discharge summary. Thank You. CLINICAL INDICATORS - SIGNS / SYMPTOMS / LABS / RESULTS AND LOCATION IN MR 12/18 ED REPORT: RESPIRATIONS 24, O2 94-96% 2L/NC > 96-98% 3L/NC, HPI: PATIENT REPORTS SOB BECAUSE OF STOMACH FLUID. PATIENT DENIES WEARING OXYGEN AT HOME. PHYSICAL EXAM: PATIENT IS HYPOXIC. PHYSICIAN DX: PULMONARY EMBOLISM, PNEUMONIA 12/18 H&P (AMARILIS) HPI: HE DOES REPORT SOME SHORTNESS OF BREATH, WHICH IS GENERALLY MORE CHRONIC. 12/20 CT ABDOMEN /PELVIS: IMPRESSION: 3) SMALL RIGHT PLEURAL EFFUSION WITH PERSISTENT SMALL AREA OF CONSOLIDATION TO RIGHT LUNG BASE WHICH MAY BE ATTRIBUTABLE TO VOLUME LOSS. INCREASED DENSITY MATERIAL WITHIN THE AIR CONSOLIDATION IS ALSO SEEN. RISK: ADVANCED AGE (78), DX PULMONARY EMBOLISM,FORMER SMOKER OF 40 YEARS (H&P/AMARILIS ) 12/18 TREATMENTS: SUPPLEMENTAL OXYGEN 12/18-12/19, 12/20 CONTINUOUS TELEMETRY MONITORING (12/18-PRESENT) CTA 12/18 CXR 12/18 THANK YOU! CECILIA (This form is maintained as a part of the permanent medical record) 2014 [email or web address]. All Rights Reserved [email or web address] [phone] [facility]
--- NOTE | 2018-12-21 20:47 | DIS ---
DATE OF ADMISSION: 12/18/2018 DATE OF DISCHARGE: 12/21/2018 DISCHARGE DIAGNOSES: 1. Pancreatic cancer with obstructive disease. 2. Bacteremia with Klebsiella pneumoniae. 3. Biliary and pancreatic insufficiency syndrome. 4. Deep vein thrombosis. 5. Pulmonary embolus. 6. Splenic vein deep vein thrombosis. 7. Diarrhea. 8. History of hypertension. HISTORY OF PRESENT ILLNESS: This patient is a 78-year-old male, who was here in late September, at which time he had some painless jaundice and severe elevations in his bilirubin. Imaging revealed pancreatic cancer. The patient was subsequently referred to [facility] for endoscopic ultrasound biopsy confirming the diagnosis of pancreatic cancer. He was subsequently seen at [facility] and has been started on chemotherapy. He was told to present should he develop any fever. He did in fact have some fever and presented to the emergency department. The patient had a known DVT in the lower extremity and was receiving Lovenox. He had a CT angiogram of the chest, which revealed mild pulmonary embolism involving few pulmonary artery branches on the left with small clot burden. There were a large number of tiny calcific densities throughout the right lower lobe, airspace density of unclear etiology, possibly related to aspiration of some type of prior barium or other contrast or dense liquid material. Some ascites was noted and there was pneumobilia, probably related to his prior biliary stents. HOSPITAL COURSE: The patient was admitted to the hospital with febrile illness. Given his underlying cancer and chemotherapy regimen, he was started on broad-spectrum antibiotics. He subsequently had a positive blood culture growing Pseudomonas. He had stool sent for C diff, which was negative. Flu screen was negative. Stool was negative for Campylobacter antigen and shiga toxins. He did well, had no further fever. He was seen in consultation by Dr. Parkinson of the Infectious Disease Service and felt the patient likely had a source from his pancreatic cancer and stents. He recommended the patient continue on p.o. Cipro for 2 weeks duration. The patient also had a repeat CT abdomen and pelvis, which essentially showed no change; however, there was an occlusion of the splenic vein and thrombus within the portion of the superior mesenteric vein and portal confluence, which could either be plain thrombus or tumor thrombus. There was also some increased density in the urinary bladder, felt to be related to prior contrasted study. The patient was started on some Pancrease and subsequently some Actigall and felt like his symptoms might be slightly improving with that. Ultimately, he was comfortable with plan for discharge with outpatient followup. DISPOSITION: The patient is discharged to home. DIET: He will be on an unrestricted diet, but should try to limit excess fat in his diet. ACTIVITY: As tolerated. MEDICATIONS: Will include: 1[place] [id number] one p.o. t.i.d. with meals. 2. Actigall 300 mg p.o. t.i.d. with meals. 3. Cipro 500 mg b.i.d. Continue: 1. Tamsulosin. 2. Tylenol. 3. Cough drops. 4. Hydroxyzine. 5. Zofran. 6. Lovenox 105 mg subcu b.i.d. 7. Docusate. 8. Benadryl p.r.n. FOLLOWUP: He will follow up with Dr. Celaya in 7 days and he should follow up with [facility] as scheduled. He can return to the hospital at anytime should he have the need to do so. TIME SPENT: Total time in discharge activities was 35 minutes. Job ID: [id number] [facility] HOSPITALJameson
--- NOTE | 2018-12-23 04:19 | PQF ---
STEVIE ALVARES DAVID R MD [id number] [facility]-[id number] CLINICAL DOCUMENTATION CLARIFICATION FORM: POST DISCHARGE Addendum to original discharge summary date: ____ Late entry note date: __ DATE: 12/23/18 ATTN: Srinath Cortes Please exercise your independent, professional judgment in responding to the clarification form. Clinical indicators are provided on the bottom of this form for your review Can you please further specify the diagnosis based on the clinical indicators below? Please check appropriate box(s): [ ] Aspiration Pneumonia [ ] Empirically treating Gram Negative Pneumonia [ ] Empirically treating Anaerobic Pneumonia [ ] Pneumonia secondary to (specify organism / underlying disease) [ ] Simple Pneumonia (community acquired - nosocomial) [ x ] No Pneumonia [ ] Pneumonia of unknown etiology [ ] Other diagnosis please specify [ ] Unable to determine In addition, please specify: Present on Admission (POA): [ ] Yes [ ] No [ ] Unable to determine For continuity of documentation, please document condition throughout progress notes and discharge summary. Thank You. CLINICAL INDICATORS - SIGNS / SYMPTOMS / LABS ED Provider 12/18 pg.4- Diagnosis Final: Pneumonia Hospitalist PN 12/18 pg.3- Bacteremia due to Klebsiella pneumoniae ED Notes 12/18 "Patient presents for evaluation of fever.Measures maximum temp 102-102.9 degrees" ED Vital signs: BP: 111/59 Respi: 24 Temp: 101.2 H and P 12/18 pg.3- Febrile illness in a patient undergoing chemotherapy for pancreatic cancer. The only likely source at this point seems to be possible early pneumonia Chest Xray 12/18 "Pneumonia is less likely but not completely excluded" DS 12/21 -"There were a large number of tiny calcific densities throughout the right lower lobe, airspace density of unclear etiology, possibly related to aspiration of some type of prior barium or other contrast or dense liquid material" RISK FACTORS Bacteremia- Hospitalist PN pg 3 pancreatic cancer-H and P 12/18 pg.3 S/p Stents to biliary tree- Consult Dr. aPrkinson pg.1 78 years old male-ED Notes 12/18 TREATMENTS: Chest/Thorax CTA 12/18 Chest Xray 12/18 Infectious Consult- 12/20 Dr. Parkinson Piperacillin (Zosyn)4.5gm IV- MAY 09 Vancomycin 1.5gm IV- MAY 09 Blood culture-Hospitalist PN 12/18 pg.3 (This form is maintained as a part of the permanent medical record) 2015 [employer]. All Rights Reserved Jesus [email or web address] [not provided] MTDD
--- NOTE | 2018-12-23 04:24 | PQF ---
STEVIE ALVARES DAVID R MD [id number] [facility]-292 [id number] CLINICAL DOCUMENTATION CLARIFICATION FORM: POST DISCHARGE Addendum to original discharge summary date: ____ Late entry note date: __ DATE: 12/23/18 ATTN: Srinath Cortes Please exercise your independent, professional judgment in responding to the clarification form. Clinical indicators are provided on the bottom of this form for your review Can you please further specify the etiology of Bacteremia? Please check appropriate box(s): [ ] Bacteremia due to sepsis [ ] Bacteremia due to recent biliary stent placement [ x ] Bacteremia due to pancreatic cancer [ ] Bacteremia unknown etiology [ ] Other diagnosis please specify [ ] Unable to determine In addition, please specify: Present on Admission (POA): [ x] Yes [ ] No [ ] Unable to determine For continuity of documentation, please document condition throughout progress notes and discharge summary. Thank You. CLINICAL INDICATORS - SIGNS / SYMPTOMS / LABS Hospitalist PN 12/18 pg.3- Bacteremia due to Klebsiella pneumoniae Consult Dr. Parkinson pg.2- Pancreatic cancer with obstructing biliary system status post stenting at [facility] and started on gemcitabine there, now with fever and Klebsiella pneumoniae bacteremia Consult Dr. Parkinson pg.2- Infection following stent placement can sometimes be associated with occlusion of the lumen of the stent by debris fragments DS pg.1- Some ascites was noted and there was pneumobilia, probably related to his prior biliary stents DS pg.1- Patient likely has a source from his pancreatic cancer and stent ED Notes 12/18 "Patient presents for evaluation of fever.Measures maximum temp 102-102.9 degrees" HP 12/18 "he underwent endoscopic ultrasound and biopsy confirming a pancreatic cancer" HP 12/18 "He also has several stents placed within the pancreatic duct and biliary tree" ED Vital signs: BP: 111/59 Respi: 24 Temp: 101.2 RISK FACTORS Bacteremia- Hospitalist PN pg 3 pancreatic cancer-H and P 12/18 pg.3 S/p Stents to biliary tree- Consult Dr. Parkinson pg.1 ED Notes 12/18-78 years old male TREATMENTS: Chest/Thorax CTA 12/18 Chest Xray 12/18 Infectious Consult- 12/20 Dr. Parkinson Piperacillin (Zosyn)4.5gm IV- MAY 09 Vancomycin 1.5gm IV- MAY 09 Blood culture-Hospitalist PN 12/18 pg.3 (This form is maintained as a part of the permanent medical record) 2014 [employer]. All Rights Reserved Jesus [email or web address] [not provided] MTDD
== END 2018-12-21 13:43 | disposition home or self-care (01) | DRG 435 ==
LOC: ERS 08:10 → 2NO 15:24
PROVIDERS: ADMIT Internal Medicine; ATTEND Internal Medicine
DX: C25.9 Malignant neoplasm of pancreas, unspecified (principal); I26.99 Other pulmonary embolism without acute cor pulmonale; R78.81 Bacteremia; I82.501 Chronic embolism and thrombosis of unspecified deep veins of right lower extremity; J98.11 Atelectasis; I82.491 Acute embolism and thrombosis of other specified deep vein of right lower extremity; K86.81 Exocrine pancreatic insufficiency; B96.1 Klebsiella pneumoniae [K. pneumoniae] as the cause of diseases classified elsewhere; N40.0 Benign prostatic hyperplasia without lower urinary tract symptoms; R50.81 Fever presenting with conditions classified elsewhere; R19.7 Diarrhea, unspecified; I10 Essential (primary) hypertension; Z90.49 Acquired absence of other specified parts of digestive tract; Z79.899 Other long term (current) drug therapy; Z87.891 Personal history of nicotine dependence; M19.012 Primary osteoarthritis, left shoulder; M19.011 Primary osteoarthritis, right shoulder
CPT/HCPCS: 36415; 36416; 71045; 71275; 74177; 80048; 80053; 81003; 81015; 82553; 83605; 83630; 83690; 83880; 84484; 85025; 87040; 87045; 87046; 87077; 87086; 87149; 87186; 87324; 87427; 87449; 87804; 93005; 94760; 96365; 96367; 96372; J0692; J1650; J2405; J2543; J3370; J3480; J3490; J7050; Q9966

== ENCOUNTER 2019-06-12 08:14 | Emergency (ER) | payer MEDICARE, OTHER ==
[2019-06-12] MEDS ORDERED: Ondansetron PF 4 MG/2 ML Vial ONE (08:51)
[2019-06-12 08:57] LABS: #Eosinphils 0.1 thou/uL (0.0-0.7); #Lymphocytes 0.9 thou/uL (1.20-3.40); #Monocytes 0.5 thou/uL (0.11-0.59); #Neutrophils 6.3 thou/uL (1.40-6.50); %Basophils 0.2 % (0.0-1.0); %Eosinophils 0.8 % (0.0-10.0); %Lymphocytes 11.9 % (21.0-51.0); %Monocytes 6.8 % (0.0-10.0); %Neutrophils 80.3 % (42.0-75.0); Mean Corpuscular HGB CONC 31.8 g/dL (32.0-36.0); Mean Corpuscular Hemoglobin 28.9 pg (27.0-31.0); Mean Corpuscular Volume 90.9 fL (78.0-98.0); Mean Platelet Volume 9.3 fL (7.4-10.4); Platelet Count 161 thou/uL (130-400); RBC Distribution Width 13.4 % (11.5-14.5); Red Blood Cell (RBC) Count 4.49 mill/uL (4.70-6.10); White Blood Cell (WBC) Count 7.8 thou/uL (4.8-10.8)
[2019-06-12 09:12] LABS: ALT (SGPT) 15 U/L (8-55); AST (SGOT) 19 U/L (5-34); Albumin 3.1 g/dL (3.4-4.8); Alkaline Phosphatase 125 U/L (40-110); Anion Gap 13 mmol/L (10-20); BUN (Urea Nitrogen) 15 mg/dL (8.4-25.7); Bilirubin, Total 1.9 mg/dL (0.2-1.2); Calc. Creatinine Clearance 0 mL/min (70-130); Calcium 10.2 mg/dL (7.8-10.44); Carbon Dioxide 31 mmol/L (23-31); Chloride 97 mmol/L (98-107); Estimated GFR-MDRD 57; Globulin 2.8 g/dL (2.4-3.5); Glucose 155 mg/dL (83-110); Lipase 13 U/L (8-78); Protein, Total 5.9 g/dL (5.8-8.1); Sodium 137 mmol/L (136-145)
[2019-06-12 09:27] LABS: Bacteria/HPF None Seen HPF (None Seen); Bilirubin Negative (Negative); Blood, Urine Trace (Negative); Clarity Clear (Clear); Glucose, Urine (Dipstick) Normal (Negative); Leukocyte Negative Leu/uL (Negative); Nitrite Negative (Negative); Protein, Urine (Dipstick) 30 mg/dL (Neg-Trace); Squamous Epithelial None Seen HPF (0-3)
[2019-06-12] MEDS ORDERED: Metoclopramide HCl 10 MG/2 ML VIAL ONE (09:38)
== END 2019-06-12 10:55 | disposition home or self-care (01) ==
LOC: ERS 08:14
DX: R11.2 Nausea with vomiting, unspecified (principal); Z79.899 Other long term (current) drug therapy
CPT/HCPCS: 36415; 80053; 81003; 81015; 83690; 84484; 85025; 87086; 93005; 96361; 96365; 96375; J2405; J2765

== ENCOUNTER 2019-07-02 05:58 | Observation (INO) | payer MEDICARE, OTHER ==
[2019-07-02] MEDS ORDERED: Promethazine HCl 25 MG/ML VIAL ONE (06:21)
[2019-07-02 06:38] LABS: #Lymphocytes 0.4 thou/uL (1.20-3.40); #Monocytes 0.7 thou/uL (0.11-0.59); #Neutrophils 8.8 thou/uL (1.40-6.50); %Basophils 0.1 % (0.0-1.0); %Eosinophils 0.2 % (0.0-10.0); %Lymphocytes 3.6 % (21.0-51.0); %Monocytes 7.3 % (0.0-10.0); %Neutrophils 88.9 % (42.0-75.0); Hemoglobin 12.3 g/dL (14.0-18.0); Mean Corpuscular HGB CONC 32.6 g/dL (32.0-36.0); Mean Corpuscular Hemoglobin 29.9 pg (27.0-31.0); Mean Corpuscular Volume 91.9 fL (78.0-98.0); Mean Platelet Volume 9.1 fL (7.4-10.4); Platelet Count 126 thou/uL (130-400); RBC Distribution Width 14.4 % (11.5-14.5); White Blood Cell (WBC) Count 9.9 thou/uL (4.8-10.8)
[2019-07-02 07:00] LABS: ALT (SGPT) 13 U/L (8-55); AST (SGOT) 19 U/L (5-34); Albumin 2.8 g/dL (3.4-4.8); Alkaline Phosphatase 96 U/L (40-110); Anion Gap 17 mmol/L (10-20); BUN (Urea Nitrogen) 20 mg/dL (8.4-25.7); Bilirubin, Total 2.1 mg/dL (0.2-1.2); CK (CPK) 22 U/L (30-200); Calc. Creatinine Clearance 0 mL/min (70-130); Calcium 9.9 mg/dL (7.8-10.44); Carbon Dioxide 22 mmol/L (23-31); Chloride 101 mmol/L (98-107); Estimated GFR-MDRD 61; Globulin 2.9 g/dL (2.4-3.5); Glucose 160 mg/dL (83-110); Lipase Less than 4 U/L (8-78); Potassium 3.4 mmol/L (3.5-5.1); Protein, Total 5.7 g/dL (5.8-8.1); Sodium 137 mmol/L (136-145)
[2019-07-02] MEDS ORDERED: Promethazine HCl 25 MG/ML VIAL SLOW IVP PRN (07:29)
--- NOTE | 2019-07-02 07:39 | RAD ---
Radiograph abdomen one view: DATE: 07/02/2019 HISTORY: 79-year-old male with nausea and vomiting with diarrhea. FINDINGS: IVC filter. Metallic biliary stent. Gas in nondilated transverse and rectosigmoid colon. Paucity of s mall bowel gas. Upper abdomen excluded from [id number]. IMPRESSION: Lack of gas in the small intestine makes it difficult to evaluate the small bowel.
[2019-07-02 08:38] LABS: Bilirubin Negative (Negative); Blood, Urine 1+ (Negative); Clarity Clear (Clear); Glucose, Urine (Dipstick) Normal (Negative); Leukocyte Negative Leu/uL (Negative); Nitrite Negative (Negative); Protein, Urine (Dipstick) 30 mg/dL (Neg-Trace); Urobilinogen Normal mg/dL (Less than 2); WBC/HPF 0-3 HPF (0-3)
[2019-07-02 08:47] LABS: Bacteria/HPF 1+ HPF (None Seen); Calcium Oxalate Crystals 2+ HPF (None Seen); Squamous Epithelial 0-3 HPF (0-3)
[2019-07-02] MEDS ORDERED: Metoclopramide HCl 10 MG/2 ML VIAL ONE (08:47)
[2019-07-02] MEDS ORDERED: diphenhydrAMINE 50 MG/ML VIAL ONE (08:52)
[2019-07-02] MEDS ORDERED: Sucralfate 1 GM/10 ML UDCUP ONE (09:03)
--- NOTE | 2019-07-02 09:39 | RAD ---
RADIOGRAPH CHEST 1 VIEW: DATE: 07/02/2019 TIME: 9:13 AM HISTORY: 79-year-old male with pancreatic cancer presents with nausea and vomiting COMPARISON: 12/18/2018 FINDINGS: Nonspecific mild reticular densities at the right lung base, similar to prior study. Similar appearan ce of right hemidiaphragm. Prior CT showed that there was a small right pleural effusion. No cardiomegaly or pulmonary edema. The only interval change is a new right IJ implantable vascular acce ss port with distal tip at SVC. No pneumothorax. No pneumoperitoneum. IMPRESSION: 1. Changes at right lung base, mild, similar to prior study, and possible small right pleural effusio n. 2. Right-sided implantable vascular access port.
[2019-07-02] MEDS ORDERED: Iopamidol-370 76% 500 ML 1 ML ONE (10:07)
[2019-07-02 10:14] LABS: CKMB 0.7 ng/mL (0-6.6)
--- NOTE | 2019-07-02 10:59 | CT ---
CT ABDOMEN AND PELVIS WITH CONTRAST: HISTORY: Vomiting. COMPARISON: Pelvis CT from 12/20/2018. FINDINGS: Mild fibrosis in the lung bases. There is a large volume ascites. Atrophy of the liver. A stent is pr esent within the common bile duct. There is intrahepatic biliary gas. Evaluation of the pancreatic mass is somewhat limited, although there is extensive hypoattenuation al shonna the uncinate process and pancreatic head with dilatation of the pancreatic duct. The superior mes enteric artery is highly attenuated due to mass involvement with a focal area of near complete narrow ing, 2.7 cm from the ostia. IVC filter is in place in an infrarenal location. No contrast is seen within the portal vein, which is likely occluded with some cavernous transformati on near the hilum. There are bilateral renal cysts. Incidental note is made of splenic clefts. There is marked distention of the stomach with inflammatory change along the second and third portion of the duodenum. There is hyperenhancement of the third portion of the duodenum involving the mucosa . Extensive diverticular disease of the sigmoid colon without inflammation. The aortoiliac contour is n ormal. The origin of the splenic artery is highly attenuated. The hepatic artery is highly attenuated. No acute osseous abnormality. IMPRESSION: 1. New large volume ascites with progressive volume loss of the liver. 2. 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 3. Highly attenuated SMA as well as celiac trunk, splenic vessels and hepatic vessels due to a combin ation of extrinsic narrowing from a pancreatic mass and radiation change. There is concern for a comp onent of ischemic change of the small bowel due to the hyperenhancing mucosa, which can be seen with shock bowel. Recommend correlation with lactic acid levels. 4. Thickened and narrowed second and third portions of duodenum with markedly distended stomach with air-fluid level. This could be hyperemic change from the post radiation intramural edema causing seco ndary narrowing of the lumen with gastric outlet obstruction. 5. Reflux of enteric contents through the distal esophagus. POS: HOME
[2019-07-02] MEDS ORDERED: Ondansetron PF 4 MG/2 ML Vial IVP PRN (12:08)
[2019-07-02] MEDS ORDERED: Senokot S 8.6-50 MG TAB PO PRN (12:08)
[2019-07-02] MEDS ORDERED: NS 0.9% w/ 20 MEQ KCL 1,000 ML/1,000 ML BAG IV SCH (12:15)
[2019-07-02] MEDS ORDERED: Pantoprazole 40 MG VIAL IVP SCH ×2 (12:15→21:00)
[2019-07-02 12:54] VITALS: BMI 22.1
[2019-07-02 13:08] LABS: Lactic Acid 3.2 mmol/L (0.5-2.2)
[2019-07-02 13:11] LABS: Magnesium 1.4 mg/dL (1.6-2.6); Phosphorus 3.2 mg/dL (2.3-4.7)
[2019-07-02 16:44] VITALS: BP 102/58; TEMP 98.7
[2019-07-02] MEDS ORDERED: Pancrelipase DR 12000 1 CAP PO SCH (17:00)
[2019-07-02] MEDS ORDERED: Potassium Chloride 20 MEQ in Premix Bag 1 BAG IVPB SCH ×2 (17:15)
[2019-07-02] MEDS ORDERED: D5W-AA 4.25% with LYTES 1,000 ML BAG IV SCH (17:30)
[2019-07-02] MEDS: Lidocaine 2% Viscous Solution 10 ML, Aluminum & Magnesium Hydroxide 30 ML SSW SCH ×2 (17:43→17:57)
[2019-07-02] MEDS ORDERED: Promethazine HCl 25 MG/ML VIAL SLOW IVP SCH (17:45)
[2019-07-02] MEDS ORDERED: Promethazine HCl 12.5 MG in Sodium Chloride 0.9% 50 ML IVPB SCH (17:45)
[2019-07-02 18:35] LABS: Lactic Acid 2.2 mmol/L (0.5-2.2)
[2019-07-03] MEDS ORDERED: Enoxaparin Sodium 40 MG/0.4 ML SYRINGE SC SCH (09:00)
--- NOTE | 2019-07-03 15:55 | SS ---
DATE OF ADMISSION: 07/02/2019 DATE OF DISCHARGE: 07/02/2019 DISCHARGE DIAGNOSES: As of the following; 1. Intractable nausea and vomiting. 2. Pancreatic cancer, status post radiation a week ago in [facility]. 3. Peptic ulcer disease. 4. Dehydration. 5. Electrolyte imbalance. HOSPITAL COURSE: The patient is a 79-year-old male, who has been diagnosed with pancreatic cancer. Initially got chemotherapy, then went to [facility] for trial based radiation therapy, finished 5 doses of radiation a week prior to his arrival. The patient stated that he has been having ongoing nausea and vomiting, however, this was intermittent. He was able to keep some of his foods down. However, the night prior to his admission, he started having significant amount of nausea and vomiting to the point that he could not even keep water down. At this time, he was brought into the hospital for further evaluation. 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 Recommended correlation with lactic acid. Also noted thickening and narrowing of the second and third portion of the duodenum and markedly distended stomach and air filled fluids. This could be hyperemic changes from the post radiation intramural edema causing secondary narrowing of the lumen and gastric outlet obstruction. He also had occluded portal vein and new large volume ascites. Upon this finding, this was discussed with the patient and the patient's family. The patient wanted to be a full code. I did initiate a transfer to [facility]. I did speak with the radiation oncologist on-call, who initially accepted the patient to be transferred if it was okay by the hospitalist at [facility]. At this time, I did call the Transfer Center, set up the transfer. I spoke with Dr. Ramirez in [facility], however, denied the transfer, stated that it was not an acute transfer. I actually spoke with our surgical team, who recommended palliative or hospice in regard to the patient's findings for possible stenting in regard to his vasculature, and also based on the patient's higher level of care, our GI do not do any sort of stenting for gastric outlet obstruction. The patient was given Phenergan, Zofran, and also Protonix. He was put on a clear liquid diet and after taking a few sips, had violent nausea and vomiting, which appeared to be very dark in nature. He was on Eliquis about a week ago, which was taken off and I was notified that he had an endoscopy done about 10 to 15 days prior to his current admission, which indicated small ulcers. Given his overall acuity of the fact that he had the patient did not appear well, appear very sick and the decision was made to transfer the patient to [facility], where he would have a better opportunity if intervention was required, since we were not able to provide the patient with any surgical intervention at that time. PAST MEDICAL HISTORY: Pancreatic cancer. PAST SURGICAL HISTORY: He has had back surgery in 2018 and cholecystectomy and hernia repair. SOCIAL HISTORY: No alcohol use. No drug use. He is a full code. I did discuss this with the patient. No smoking history. ALLERGIES: NO KNOWN DRUG ALLERGIES. MEDICATIONS: He is on; 1. Lasix 20 mg daily. 2. Creon 12,000 units 3 times a day. 3. Potassium 20 mEq daily. 4. Ranitidine 150 mg daily. 5. Tamsulosin 0.4 mg daily. 6. Carafate. FAMILY HISTORY: No history of heart disease or strokes. PHYSICAL EXAMINATION: VITAL SIGNS: Temperature of 97.7, respiratory rate 16, pulse 74, blood pressure 117/71, and oxygen saturation 95% on room air. GENERAL: The patient is awake, alert, and oriented x3. Appears very ill. Appears very cachectic. HEENT: Pupils are equal and reactive to light. The patient appears pale. CARDIOVASCULAR: S1 and S2 present. No murmurs, rubs, or gallops. LUNGS: Clear to auscultation. No rhonchi or wheezes noted. ABDOMEN: Mildly distended, nontender. Bowel sounds are present x2. EXTREMITIES: Mild lower extremity pitting edema. Pedal pulses are present x2. NEUROVASCULAR: Neurovascular-conklin, no focal deficits noted. SKIN: No cuts, lesions, or bruises noted. He does have a port on the right side. LABORATORY DATA: As of the following; sodium of 137, potassium of 3.4, BUN of 20, and creatinine of 1.16. His bilirubin was 2.1. His lactic acid initially was 3.2, improved to 2.2. His magnesium was 1.4. His troponin initially was 0.083. Hematology; WBCs of 9.9, hemoglobin of 12.3, hematocrit of 37.6, and platelets of 126. As I mentioned, he had the CT findings, which indicated concern for gastric narrowing of the second and third portion causing gastric outlet obstruction and also significant attenuated SMA and celiac trunk and splenic vessels and hepatic vessels due to the pancreatic mass. ASSESSMENT AND PLAN: The patient is a very pleasant 79-year-old male, who initially presented to the hospital with nausea and vomiting. 1. Intractable nausea and vomiting. The patient at this time was admitted to the hospital. He was given IV fluids. He was initially put on clear liquids. He was given antiemetics. He was also given PPI. He also was given a GI cocktail since he had significant amount of burning sensation to his esophagus. The patient was unable to keep anything down. This has been worsening for the past week. At this time, transfer initiation was started; however, the patient was denied transfer to [facility]. At this time, the family decided to take the patient to [facility]. I did tell the patient's family to maybe stay overnight and may be transfer in the morning because his daughter was going to be driving from [place]. This is just to make sure that nothing would happen to the family in terms of safety reasons. However, the family wanted to take the patient just that day to get him more comfortable and get him appropriate care, which is totally understandable. Again, we were unable to provide this patient higher level of care given the fact that he would require surgical intervention, which is not done by our facility in terms of the top lift trimmer and also when I spoke with the surgeon stated that this was something that they will most likely not do in regard to the tumor encasing the SMA and the celiac trunk given the increased risk of complications. I recommended either palliative care or transferring to [facility], where the patient is more familiar. The patient is a patient of [facility]. At this time, the patient's family had no choice but to sign against medical advice, which would have been the only way to take him to [facility], given the fact that the patient was very, very sick. 2. Electrolyte abnormalities, hypomagnesemia and hyperkalemia that will be replaced. 3. Elevated lactic acidosis most likely secondary to his nausea and vomiting, and also possible concern for bowel ischemia given his findings on the CAT scan. 4. Dehydration. Again, this is most likely secondary to his nausea and vomiting. 5. Protein-calorie malnutrition. It could be moderate to severe. He has not really been eating very much. His albumin is 2.8. He looks very cachectic. Job ID: [id number]
== END 2019-07-02 19:52 | disposition left against medical advice (07) ==
LOC: ERS 05:58 → ONC 09:22
PROVIDERS: ADMIT Internal Medicine; ATTEND Internal Medicine
DX: R11.2 Nausea with vomiting, unspecified (principal); C25.9 Malignant neoplasm of pancreas, unspecified; K27.9 Peptic ulcer, site unspecified, unspecified as acute or chronic, without hemorrhage or perforation; E86.0 Dehydration; E87.2 Acidosis; R18.8 Other ascites; K72.90 Hepatic failure, unspecified without coma; E46 Unspecified protein-calorie malnutrition; Z79.899 Other long term (current) drug therapy
CPT/HCPCS: 71045; 74018; 74177; 80053; 82271; 82550; 82553; 83605; 83690; 83735; 84100; 84484; 85025; 93005; 96361; 96365; 96366; 96367; 96375 ×2; 96376; 99285; G0378 ×2; 81003; 81015; C9113; J1200; J2405; J2550; J2765; J3475; J3480; J3490; Q9967